=== PATIENT | male | born 1950 | race Caucasian/White ===

== ENCOUNTER → 2022-12-19 | Day surgery (SDC) | payer MEDICARE, OTHER ==
[~2022-12-19] MED LIST: ACETAMINOPHEN 1000 MG/100 ML 100 ML IV ONE; ALBUTEROL/IPRATROPIUM 3 ML NEB ONE; ATORVASTATIN CA20 MG PO; CLONIDINE HCL0.3 MG PO; DEXAMETHASONE SOD PHOS 10 MG/1 ML VIAL ONE; DIOVAN HCT 1601 EACH; ELIQUIS5 MG PO; FENTANYL CITRATE/PF 100MCG/2 ML INJ IV ONE; FENTANYL CITRATE/PF 100MCG/2 ML INJ ONE; HYDRALAZINE HCL50 MG PO; LACTATED RINGER'S 1,000 ML ONE; LIDOCAINE HCL 2% LOCAL INJ 5 ML SDV VIAL INJ ONE; METOPROLOL TAR100 MG PO; MONTELUKAST SOD10 MG PO; NEXIUM40 MG PO; ONDANSETRON HCL INJ 2MG/ML 2ML 2 MG/ML VIAL ONE; OXCARBAZEPINE300 MG PO; OXYMETAZOLINE HCL 0.05% NAS 1 SPRAY BTL ONE; PLAVIX75 MG PO; POVIDONE IODINE 0.05% 0.05 % ML PO ONE; PROPOFOL IV EMULSION 10 MG/ML 20 ML VIAL ONE; ROCURONIUM BROMIDE 10 MG/ML 5ML VIAL IV ONE; SEVOFLURANE INHAL SOLN 250 ML PEN BTL ONE; SUGAMMADEX SODIUM 200 MG/2 ML VIAL IV ONE; ZETIA10 MG PO
[2022-12-19 10:45] VITALS: BP 149/78
== END | disposition home or self-care (01) ==
LOC: OR 06:29
PROVIDERS: ATTEND Otolaryngology Otolaryngology/Facial Plastic Surgery
DX: R07.0 Pain in throat (principal); J35.8 Other chronic diseases of tonsils and adenoids; R05.9 Cough, unspecified; R49.0 Dysphonia; M26.609 Unspecified temporomandibular joint disorder, unspecified side; I10 Essential (primary) hypertension; I49.9 Cardiac arrhythmia, unspecified; Z88.6 Allergy status to analgesic agent; Z79.02 Long term (current) use of antithrombotics/antiplatelets; Z79.899 Other long term (current) drug therapy; Z95.0 Presence of cardiac pacemaker
CPT/HCPCS: 31536; 31622; 43191; 71046; 88305; 93005; J0131; J1100; J2001; J2405; J2704; J3010; J7121; 88304